=== PATIENT | female | born 2000 | race African-American/Black ===

== ENCOUNTER 2022-06-05 13:10 | Inpatient (IN) | payer OTHER ==
[2022-06-05 14:16] VITALS: RESP 20
[2022-06-05 14:57] LABS: RETICULOCYTES 2.68 % (0.5-1.5)
[2022-06-05 15:31] LABS: URIC ACID 3.6 mg/dL (2.6-7.2)
[2022-06-05 18:21] VITALS: TEMP 98.7; BMI 30.8
[2022-06-05 18:21] LABS: HEMATOCRIT 29.8 % (32.4-45.2); HEMOGLOBIN 9.8 GM/dL (10.7-15.3); MCHC 32.8 g/dl (32.0-36.0); MEAN CELL VOLUME 88.4 fl (80-96); MEAN PLT VOLUME 9.1 fl (7.5-11.1); PLATELET COUNT 237 10^3/uL (134-434); RBC 3.38 M/mm3 (3.60-5.2); RDW 14.8 % (11.6-15.6); WHITE BLOOD COUNT 10.5 K/mm3 (4.0-10.0)
[2022-06-05 18:34] VITALS: BP 142/78; PULSE 98
[2022-06-05 18:48] LABS: CALCIUM 9.2 mg/dL (8.5-10.1)
[2022-06-05 18:49] LABS: BLOOD UREA NITROGEN 9.3 mg/dL (7-18)
[2022-06-05 18:52] LABS: CREATININE 0.7 mg/dL (0.55-1.3)
[2022-06-05 18:53] LABS: BILIRUBIN,TOTAL 0.2 mg/dL (0.2-1); TOT PROT 6.3 g/dl (6.4-8.2)
== END 2022-06-05 19:05 | disposition short-term general hospital (02) | DRG 566 ==
LOC: JLDR 13:10 → UNDOADMIN 13:10 → JDEL 13:10 → EDSTATUS 13:39 → JLDR 16:35
PROVIDERS: ADMIT Obstetrics & Gynecology; ATTEND Obstetrics & Gynecology
DX: O14.02 Mild to moderate pre-eclampsia, second trimester (principal)
CPT/HCPCS: 36415; 59025; 76801-TC; 80053; 82570; 82977; 83010; 84156; 84460; 84550; 85027; 85032; 85045; C9803-CS; U0003; U0005